=== PATIENT | female | born 1945 | race Caucasian/White ===

== ENCOUNTER → 2016-06-10 09:00 | Outpatient (CLI) | payer MEDICARE, OTHER ==
[2016-03-11 12:36] VITALS: BMI 25.8
[~2016-06-10 09:00] MED LIST: CALAN120 MG PO; DECADRON4 MG PO; HYDROCODONE-APA1 TAB PO; KEPPRA500 MG PO; ZESTRIL40 MG PO
[2016-06-10 09:36] LABS: HEMOGLOBIN A1C 5.7 % (4.8-6.0)
[2016-06-10 09:47] LABS: CALCIUM 10.2 mg/dL (8.5-10.1); CARBON DIOXIDE 26.9 mmol/L (21.0-32.0); CHOL - HDL RATIO 3.2 ratio (2.3-4.1); CREATININE - SERUM 1.2 mg/dL (0.6-1.3); LDL-HDL RATIO 1.8 ratio (1.5-3.5); POTASSIUM - SERUM 3.9 mmol/L (3.5-5.1); THYROID STIMULATING HORMONE 1.24 uIU/mL (0.36-3.74)
[2016-06-10 10:00] LABS: BASOPHILS 0.7 % (0.0-2.0); EOSINOPHILS 1.8 % (0-7); HEMATOCRIT 41.2 % (36.0-48.0); HEMOGLOBIN 13.2 g/dL (12-16); LYMPHOCYTES 34.1 % (15-50); MCH 28.1 pg (26.0-34.0); MCV 87.8 fL (80.0-100.0); MEAN PLATELET VOLUME 10.6 fL (7.4-10.4); MONOCYTES 6.8 % (2-11); NEUTROPHILS 56.6 % (40-80); PLATELET COUNT 227 10x3/uL (130-400); RBC 4.69 10x6/uL (4.00-5.40); RDW 15.5 % (11.5-14.5); WBC 5.6 10x3/uL (4.8-10.8)
== END | disposition home or self-care (01) ==
LOC: D.LAB 09:00
PROVIDERS: Family Medicine
DX: E78.4 Other hyperlipidemia (principal); J44.9 Chronic obstructive pulmonary disease, unspecified; I10 Essential (primary) hypertension; R73.9 Hyperglycemia, unspecified

== ENCOUNTER → 2017-02-22 08:16 | Outpatient (CLI) | payer MEDICARE, OTHER ==
[2016-03-11 12:36] VITALS: BMI 25.8
[2017-02-22 08:49] LABS: BASOPHILS 0.8 % (0-2); HEMATOCRIT 43.2 % (36.0-48.0); HEMOGLOBIN 14.1 g/dL (12-16); IMMATURE GRANULOCYTES 0.1 % (0-5); LYMPHOCYTES 29.6 % (15-50); MCH 29.6 pg (26.0-34.0); MCHC 32.6 g/dL (31.0-37.0); MCV 90.6 fL (80.0-100.0); MEAN PLATELET VOLUME 11.3 fL (7.4-10.4); MONOCYTES 6.9 % (2-11); NEUTROPHILS 60.6 % (40-80); PLATELET COUNT 256 10x3/uL (130-400); RBC 4.77 10x6/uL (4.00-5.40); RDW 14.5 % (11.5-14.5); WBC 7.4 10x3/uL (4.8-10.8)
[2017-02-22 09:28] LABS: ANION GAP 13.6 mmol/L (8-16); BILIRUBIN - TOTAL 0.2 mg/dL (0.2-1.3); CALCIUM 10.2 mg/dL (8.5-10.1); CARBON DIOXIDE 24.5 mmol/L (21.0-32.0); CHOL - HDL RATIO 3.5 ratio (2.3-4.1); CREATININE - SERUM 1.3 mg/dL (0.6-1.3); LDL-HDL RATIO 2.1 ratio (1.5-3.5); POTASSIUM - SERUM 4.1 mmol/L (3.5-5.1); PROTEIN - SERUM 7.1 g/dL (6.4-8.2); THYROID STIMULATING HORMONE 2.22 uIU/mL (0.36-3.74)
[2017-02-22 10:06] LABS: APPEARANCE CLEAR (CLEAR); BACTERIA FEW /hpf (NONE SEEN); BILIRUBIN NEGATIVE (NEGATIVE); COLOR YELLOW (YELLOW); EPITHELIAL CELLS 0-5 /hpf (0-5); GLUCOSE NEGATIVE (NEGATIVE); KETONE NEGATIVE (NEGATIVE); LEUKOCYTE ESTERASE TRACE (NEGATIVE); NITRITE NEGATIVE (NEGATIVE); PROTEIN NEGATIVE (NEGATIVE); SPECIFIC GRAVITY 1.015 (1.005-1.020); UROBILINOGEN NORMAL (NORMAL); WHITE CELLS - URINE 0-5 /hpf (0-5)
[2017-02-22 10:07] LABS: CALCIUM OXALATE CRYSTALS OCC /hpf (NONE SEEN); GRANULAR CAST RARE /lpf (NONE SEEN); HYALINE CAST OCC /lpf (NONE SEEN); MUCUS <1+ /lpf (NONE SEEN); WAXY CAST RARE /lpf (NONE SEEN)
== END | disposition home or self-care (01) ==
LOC: D.LAB 08:00
PROVIDERS: Family Medicine
DX: Z00.00 Encounter for general adult medical examination without abnormal findings (principal); I10 Essential (primary) hypertension; E78.4 Other hyperlipidemia; J44.9 Chronic obstructive pulmonary disease, unspecified

== ENCOUNTER → 2017-06-16 15:37 | Outpatient (CLI) | payer MEDICARE, OTHER ==
[2016-03-11 12:36] VITALS: BMI 25.8
[~2017-06-16 15:37] MED LIST changes: +ARICEPT5 MG PO; +BONIVA150 MG PO; +BUPROPION XL300 MG PO; +CO Q-10100 MG PO; +FENOGLIDE120 MG PO; +FISH OIL 1,0001 CA1 PO; +GINKGO BILOBA120 MG PO; +GLUCOSAMINE HC500 MG PO; +HYDRALAZINE HCL25 MG PO; +NAMENDA XR7 MG PO; +OXYBUTYNIN CHLOR5 MG PO; +PRAVACHOL40 MG PO; +VITAMIN B-121000 MCG PO; +VITAMIN D3400 UNI1 PO; +VITAMIN E400 UNI2 PO; +ZESTRIL20 MG PO
== END | disposition home or self-care (01) ==
LOC: D.RAD 15:37
DX: M19.049 Primary osteoarthritis, unspecified hand (principal)

== ENCOUNTER 2017-07-14 06:26 | Day surgery (SDC) | payer MEDICARE, OTHER | END 2017-07-14 12:50 | disposition home or self-care (01) | LOC: D.OPS 06:26 | DX: N39.41 Urge incontinence (principal); F17.200 Nicotine dependence, unspecified, uncomplicated; I10 Essential (primary) hypertension; J44.9 Chronic obstructive pulmonary disease, unspecified; N31.9 Neuromuscular dysfunction of bladder, unspecified; Z01.812 Encounter for preprocedural laboratory examination ==

== ENCOUNTER → 2019-11-14 10:43 | Outpatient (CLI) | payer MEDICARE, OTHER ==
[2017-07-14 08:16] VITALS: BMI 23.9
[2019-11-14 11:32] LABS: BASOPHILS 1.3 % (0-2); EOSINOPHILS 4.3 % (0-7); HEMATOCRIT 45.2 % (36.0-48.0); HEMOGLOBIN 14.4 g/dL (12-16); IMMATURE GRANULOCYTES 0.3 % (0-5); LYMPHOCYTES 26.7 % (15-50); MCH 29.7 pg (26.0-34.0); MCHC 31.9 g/dL (31.0-37.0); MCV 93.2 fL (80.0-100.0); MEAN PLATELET VOLUME 10.9 fL (7.4-10.4); MONOCYTES 8.3 % (2-11); NEUTROPHILS 59.1 % (40-80); PLATELET COUNT 261 10x3/uL (130-400); RBC 4.85 10x6/uL (4.00-5.40); RDW 13.9 % (11.5-14.5); WBC 6.8 10x3/uL (4.8-10.8)
[2019-11-14 12:02] LABS: ALBUMIN 3.9 g/dL (3.4-5.0); ANION GAP 8.4 mmol/L (8-16); BILIRUBIN - TOTAL 0.28 mg/dL (0.2-1.3); CALCIUM 10.7 mg/dL (8.5-10.1); CARBON DIOXIDE 30.7 mmol/L (21.0-32.0); CHOL - HDL RATIO 4.2 ratio (2.3-4.1); CREATININE - SERUM 1.2 mg/dL (0.6-1.3); LDL-HDL RATIO 2.4 ratio (1.5-3.5); POTASSIUM - SERUM 4.1 mmol/L (3.5-5.1); PROTEIN - SERUM 7.5 g/dL (6.4-8.2); THYROID STIMULATING HORMONE 1.16 uIU/mL (0.36-3.74)
== END | disposition home or self-care (01) ==
LOC: D.LAB 10:43
PROVIDERS: ATTEND Family Medicine
DX: Z00.00 Encounter for general adult medical examination without abnormal findings (principal); F03.90 Unspecified dementia, unspecified severity, without behavioral disturbance, psychotic disturbance, mood disturbance, and anxiety; F34.1 Dysthymic disorder; R79.9 Abnormal finding of blood chemistry, unspecified; E78.49 Other hyperlipidemia; R39.198 Other difficulties with micturition